=== PATIENT | male | born 1975 | race Two or more races ===

== ENCOUNTER 2023-06-07 11:23 | Emergency (ER) | payer OTHER ==
[~2023-06-07] VITALS: Ht 177.8 cm; Wt 77.1 kg
[2023-06-07 12:25] LABS: BASOPHILS % (AUTO) 0.2 % (0.0-2.0); EOSINOPHILS % (AUTO) 12.3 % (0.0-6.0); HEMATOCRIT 38 % (39-51); LYMPHOCYTES % (AUTO) 12.1 % (20.0-44.0); MEAN CORPUSCULAR HEMOGLOBIN 29 PG (26.0-33.0); MEAN CORPUSCULAR HGB CONC 35 g/dl (31.0-36.0); MEAN CORPUSCULAR VOLUME 85 fL (80-96); MONOCYTES # (AUTO) 0.6 K/uL (0.1-1.30); MONOCYTES % (AUTO) 7.8 % (2.0-12.0); NEUTROPHILS # (AUTO) 5.4 K/uL (1.8-8.9); NEUTROPHILS % (AUTO) 67.6 % (43.0-81.0); PLATELET COUNT (AUTO) 236 K/uL (150-450); RED BLOOD CELL COUNT(AUTO) 4.46 MIL/uL (4.5-6.0); RED CELL DISTRIBUTION WIDTH 12.9 % (11.5-15.0)
[2023-06-07] MEDS ORDERED: IOHEXOL-300 100 ML VIAL IV ONE (12:54)
[2023-06-07] MEDS ORDERED: IV NS 0.9% 250 ML IV ONE (12:54)
[2023-06-07 13:12] LABS: CALCIUM, SERUM 8.7 mg/dL (8.5-10.1); POTASSIUM 4.7 mmol/L (3.5-5.1)
[2023-06-07 13:49] VITALS: BP 123/84; TEMP 209.7; O2SAT 99
== END 2023-06-07 13:50 | disposition home or self-care (01) ==
LOC: ER 11:31
DX: S19.9XXA Unspecified injury of neck, initial encounter (principal); R07.0 Pain in throat; Z88.2 Allergy status to sulfonamides; X58.XXXA Exposure to other specified factors, initial encounter; Y93.89 Activity, other specified; Y92.89 Other specified places as the place of occurrence of the external cause; Y99.8 Other external cause status
CPT/HCPCS: 99285; 70491; 85025; 80048; 36415; J7050; Q9967